=== PATIENT | female | born 1975 | race Caucasian/White ===

== ENCOUNTER 2019-12-07 21:54 | Emergency (ER) | payer OTHER, SELFPAY ==
[~2019-12-07] VITALS: Ht 157.5 cm; Wt 72.6 kg
--- NOTE | 2019-12-07 22:06 | NUR ---
PT TAKEN TO OF TENT
[2019-12-07 22:17] VITALS: BP 135/56
--- NOTE | 2019-12-07 22:19 | NUR ---
SEE TRIAGE NOTE.
[2019-12-07] MEDS: ACETAMIN/CODEINE 120/12MG-5ML 5 ML UDC PO ONE (22:41)
[2019-12-07] MEDS: KETOROLAC 30 MG/ML VIAL IM ONE (22:42)
--- NOTE | 2019-12-07 23:19 | NUR ---
Patient discharged with v/s stable. Written and verbal after care instructions given and explained. Patient alert, oriented and verbalized understanding of instructions. Ambulatory with steady gait. All questions addressed prior to discharge. ID band removed. Patient advised to follow up with PMD. Rx of Z=PACK, NAPROSYN AND CUAISTUSSIN given. Patient educated on indication of medication including possible reaction and side effects. Opportunity to ask questions provided and answered.
[2019-12-07 23:22] VITALS: BP 123/62
--- NOTE | 2019-12-08 15:11 | NUR ---
Prescription called to [facility] pharmacy in [place]-- 500mg PO q6H for pain/fever.
== END 2019-12-07 23:19 | disposition home or self-care (01) ==
LOC: MED 21:54
DX: J20.9 Acute bronchitis, unspecified (principal); Z20.828 Contact with and (suspected) exposure to other viral communicable diseases
CPT/HCPCS: 71045; 96372; 99283; J1885

== ENCOUNTER 2021-10-14 21:36 | Emergency (ER) | payer OTHER ==
[~2021-10-14] VITALS: Ht 157.5 cm; Wt 80.7 kg
[2021-10-14 22:05] VITALS: BP 150/90
--- NOTE | 2021-10-14 22:08 | NUR ---
TO LOBBY A/W BED AMBULATORY
[2021-10-14] MEDS ORDERED: ONDANSETRON 4 MG ODT PO ONE (23:05)
--- NOTE | 2021-10-14 23:20 | NUR ---
PT AMBULATED TO BED #11
[2021-10-14 23:22] LABS: BASOPHILS # (AUTO) 0.1 K/uL (0.00-0.22); EOSINOPHILS % (AUTO) 0.3 % (0.0-4.0); HEMATOCRIT 37.6 % (36-48); HEMOGLOBIN 12.8 g/dL (12.0-16.0); LYMPHOCYTES # (AUTO) 2.1 K/uL (2.5-16.5); LYMPHOCYTES % (AUTO) 29.1 % (20.5-51.1); MEAN CORPUSCULAR HEMOGLOBIN 31 pg (27-31); MEAN CORPUSCULAR HGB CONC 34 g/dL (33-37); MEAN CORPUSCULAR VOLUME 91.8 fL (80-94); MONOCYTES # (AUTO) 0.6 K/uL (0.8-1.0); MONOCYTES % (AUTO) 8.6 % (1.7-9.3); NEUTROPHILS # (AUTO) 4.3 K/uL (1.8-7.7); PLATELET COUNT (AUTO) 234 K/uL (140-450); RED CELL DISTRIBUTION WIDTH 14.9 % (11.6-13.7); WHITE BLOOD COUNT (AUTO) 7.1 K/uL (4.8-10.8)
[2021-10-14 23:44] LABS: ALBUMIN 3.9 g/dL (3.4-5.0); ANION GAP 15.5 (8-16); CREATININE 0.5 mg/dL (0.6-1.3); POTASSIUM 3.5 mmol/L (3.5-5.1); TOTAL BILIRUBIN 1.1 mg/dL (0.0-1.0)
--- NOTE | 2021-10-14 23:50 | NUR ---
46 YO F BIB SELF WITH C/C OF N/V X 2 DAYS. PT REPORTS 9/10 LOWER ABD/PELVIC PAIN THAT RADS FROM FRONT TO BACK. DENEIS URINARY CHANGES. DENIES BLOOD IN EMESIS. DENIES DIARRHEA. PT REPORTS LEFT NECK PAIN THAT WHEN PRESSED IN CERTAIN PLACES PAIN RAD TO HEAD AND REPORTS BLURRED VISION. DENIES HX, RX AND ALLERGIES
[2021-10-15] MEDS ORDERED: diazePAM 5 MG TAB PO ONE
[2021-10-15] MEDS ORDERED: KETOROLAC 30 MG/ML VIAL IM ONE
--- NOTE | 2021-10-15 00:09 | NUR ---
RAD AT BEDSIDE.
--- NOTE | 2021-10-15 01:43 | NUR ---
pt is awake and alert, states her abd is still hurting. ermd made aware.
[2021-10-15] MEDS ORDERED: HYDROcodone/APAP 5/325 MG 1 TAB TAB PO ONE (01:45)
[2021-10-15 01:46] LABS: APPEARANCE,URINE CLEAR (CLEAR); BILIRUBIN,URINE 2+ (NEGATIVE); BLOOD, URINE NEGATIVE (NEGATIVE); COLOR,URINE DARK YELLOW (YELLOW); LEUKOCYTE ESTERASE ,URINE NEGATIVE (NEGATIVE); NITRITE, URINE NEGATIVE (NEGATIVE); UGLUCOSE NEGATIVE (NEGATIVE)
[2021-10-15 01:59] LABS: RBC,URINE 0-5 /HPF (0-5); WBC,URINE 0-5 /HPF (0-5)
[2021-10-15 02:00] LABS: TRICHOMONAS,URINE Few /HPF (None Seen)
[2021-10-15] MEDS ORDERED: BEN10 PO (02:46)
[2021-10-15] MEDS ORDERED: NAPR-54 PO (02:46)
[2021-10-15] MEDS ORDERED: METR-435 PO (02:46)
[2021-10-15 03:00] VITALS: BP 134/72
--- NOTE | 2021-10-15 03:00 | NUR ---
Patient discharged with v/s stable. Written and verbal after care instructions given and explained. Patient alert, oriented and verbalized understanding of instructions. Ambulatory with steady gait. All questions addressed prior to discharge. ID band removed. Patient advised to follow up with PMD. Rx of bentyl and metronidazole given. Patient educated on indication of medication including possible reaction and side effects. Opportunity to ask questions provided and answered.
== END 2021-10-15 03:00 | disposition home or self-care (01) ==
LOC: MED 21:36
DX: A59.01 Trichomonal vulvovaginitis (principal); M54.2 Cervicalgia; J45.909 Unspecified asthma, uncomplicated; Z98.890 Other specified postprocedural states; Z79.899 Other long term (current) drug therapy; Z79.1 Long term (current) use of non-steroidal anti-inflammatories (NSAID); Z79.2 Long term (current) use of antibiotics
CPT/HCPCS: 36415; 71045; 80053; 81001; 81025; 83690; 85025; 93005; 96372; 99285; J1885; Q0092; Q0162

== ENCOUNTER 2022-06-30 19:03 | Observation (INO) | payer OTHER ==
[~2022-06-30] VITALS: Ht 157.5 cm; Wt 71.7 kg
[~2022-06-30 19:03] MED LIST: BEN10 PO; METR-435 PO; NAPR-54 PO
[2022-06-30 19:06] VITALS: BP 142/91
--- NOTE | 2022-06-30 19:13 | NUR ---
47/f walked in c/o headache, abd pain, nausea, vomiting, sore throat and sob. denies chest pain at this time. aao4, ambulatory, vitals stable. on room air. Hx-HTN, asthma, gerd
[2022-06-30] MEDS ORDERED: NACL 0.9% 1,000 ML IV ONE ×2 (19:25→22:35)
[2022-06-30] MEDS ORDERED: diphenhydrAMINE 50 MG/ML VIAL IVP ONE (19:25)
[2022-06-30] MEDS ORDERED: METOCLOPRAMIDE 10 MG/2 ML INJ VIAL IVP ONE (19:25)
[2022-06-30 19:57] LABS: BASOPHILS # (AUTO) 0.1 K/uL (0.00-0.22); BASOPHILS % (AUTO) 1.1 % (0.0-2.0); EOSINOPHILS % (AUTO) 0.2 % (0.0-4.0); HEMATOCRIT 38.1 % (36-48); HEMOGLOBIN 13.1 g/dL (12.0-16.0); LYMPHOCYTES # (AUTO) 1.7 K/uL (2.5-16.5); LYMPHOCYTES % (AUTO) 27.5 % (20.5-51.1); MEAN CORPUSCULAR HEMOGLOBIN 35 pg (27-31); MEAN CORPUSCULAR HGB CONC 34 g/dL (33-37); MEAN CORPUSCULAR VOLUME 101.3 fL (80-94); MONOCYTES # (AUTO) 0.5 K/uL (0.8-1.0); MONOCYTES % (AUTO) 7.7 % (1.7-9.3); NEUTROPHILS # (AUTO) 3.9 K/uL (1.8-7.7); NEUTROPHILS % (AUTO) 63.5 % (42.2-75.2); PLATELET COUNT (AUTO) 197 K/uL (140-450); RED BLOOD CELL COUNT(AUTO) 3.76 MIL/uL (4.20-5.40); RED CELL DISTRIBUTION WIDTH 16.3 % (11.6-13.7); WHITE BLOOD COUNT (AUTO) 6.1 K/uL (4.8-10.8)
[2022-06-30 20:29] LABS: ALBUMIN 4.1 g/dL (3.4-5.0); ANION GAP 17.3 (8-16); ASPARTATE AMINOTRANSFERASE 187 U/L (15-37); CARBON DIOXIDE 26.1 mmol/L (21-32); CHLORIDE 98 mmol/L (98-107); CREATININE 0.7 mg/dL (0.6-1.3); GFR ARICAN-AMERICAN 115 mL/min (>90); GLUCOSE 93 mg/dL (74-106); LIPASE 327 U/L (73-393); POTASSIUM 3.4 mmol/L (3.5-5.1); SODIUM SERUM 138 mmol/L (136-145); TOTAL BILIRUBIN 1.4 mg/dL (0.0-1.0); UREA NITROGEN, BLOOD 9 mg/dL (7-18)
--- NOTE | 2022-06-30 20:30 | NUR ---
pt is having nausea and vomitting.
[2022-06-30 20:44] LABS: APPEARANCE,URINE CLEAR (CLEAR); BILIRUBIN,URINE 3+ (NEGATIVE); BLOOD, URINE NEGATIVE (NEGATIVE); COLOR,URINE YELLOW (YELLOW); LEUKOCYTE ESTERASE ,URINE NEGATIVE (NEGATIVE); NITRITE, URINE POSITIVE (NEGATIVE); PH,URINE 5.5 (5.0-9.0); UGLUCOSE TRACE (NEGATIVE)
[2022-07-01] MEDS ORDERED: POTASSIUM CHLORIDE 10 MEQ TABER PO PRN (01:00)
[2022-07-01] MEDS ORDERED: ACETAMINOPHEN 325 MG TAB PO PRN (01:00)
[2022-07-01] MEDS ORDERED: HYDROcodone/APAP 5/325 MG 1 TAB TAB PO PRN (01:00)
[2022-07-01] MEDS ORDERED: ONDANSETRON 4 MG/2 ML VIAL IVP PRN (01:00)
--- NOTE | 2022-07-01 01:00 | NUR ---
pt is complaning about the headache. I let KAYLEE reilly knows.
[2022-07-01] MEDS ORDERED: GABA100C PO (02:19)
[2022-07-01] MEDS ORDERED: NYST100022 PO (02:19)
[2022-07-01] MEDS ORDERED: BISO5TAB30 PO (02:19)
[2022-07-01] MEDS: NACL 0.9% 1,000 ML IV SCH ×2 (02:28→13:00)
--- NOTE | 2022-07-01 06:43 | NUR ---
pt is resting on the bed. bed lowered and side rail up.
[2022-07-01] MEDS ORDERED: BUDESONIDE 0.5 MG/2 ML NEBU INH SCH (07:30)
--- NOTE | 2022-07-01 07:42 | NUR ---
PT CALM AND RESTING AT THIS TIME.
--- NOTE | 2022-07-01 07:50 | NUR ---
Patient will be admitted to care of DR COLLAZO. Admited to MS. Will go to room 119B. Belongings list completed. Report to JUMA BLANTON.
--- NOTE | 2022-07-01 08:10 | NUR ---
Admitted from , with chief complaint of , 47 y/o ,Female, Appropriate, oriented to call light, bed, phone,television, bathroom, smoking policy, visiting hours, procedures, ID bracelet on. Belongings list checked. PATIENT A/OX4 , VSS , MED SURGE PATIENT , AMBULATORY X2 , CONTINENT X2 , ON IV FLUID 80CC/H SKIN INTACT , SAFETY PROACTION ON PLACE , SIDE RAILS UP X3 , BED IN LOWER POSITION , CALL LIGHT WITHIN REACH WITH IV RIGHT AC AND LEFT HAND INTACT , STILL UNDER OBSERVE
[2022-07-01] MEDS ORDERED: DOCUSATE SODIUM 100 MG GELCAP PO SCH (09:00)
[2022-07-01] MEDS ORDERED: PANT40EC PO (10:30)
[2022-07-01] MEDS ORDERED: ONDA-188 SL (10:30)
[2022-07-01 10:46] VITALS: BP 137/88
[2022-07-01 12:12] VITALS: BP 124/72
--- NOTE | 2022-07-01 13:16 | NUR ---
NURSES NOTE PATIENT A/OX4 , VSS , ON IV FLUID 80CC/H , NO NAUSEA OR VOMITING NO COMPLAIN AT THIS TIME , STILL UNDER OBSERVE .
--- NOTE | 2022-07-01 14:54 | NUR ---
PATIENT HAS BEEN SCREENED AND CATEGORIZED HIGH NUTRITION RISK. PATIENT WILL BE SEEN WITHIN 1-2 DAYS OF ADMISSION. GO [address]
--- NOTE | 2022-07-01 15:57 | NUR ---
NURSES NOTE PATIENT A/OX4 , VSS , MED SURGE PATIENT , AMBULATORY , CONTINENTSX2 , SKIN INTACT ON ROOM AIR , ON CARDIAC DIET , STILL HAS NAUSEA , ON IV FLUID N/S 0.9% 85CC/H STILL UNDER OBSERVE .
[2022-07-01 16:57] VITALS: BP 124/80
--- NOTE | 2022-07-01 18:40 | NUR ---
NURSES NOTE PATIENT A/OX4 , VSS , NO COMPLAIN AT THIS TIME , NO NAUSEA , PATIENT HAS DISCHARGE ORDER TO GO HOME PATIENT AGREE TO BE DISCHARGE , IV AND ARM BAND REMOVED , SHE WILL PICKED UP BY HER . ASSISTED TO MAIN LOBBY BY WILL CHAIR , MEDICATIN RECONCILED , DISCHARGE PACKET EX[NICKY FOR PATIENT PATIENT VERBALIZED UNDERSTANDING OF GIVEN , ALL DOCUMENT SING AND PLACE ON CHART .
--- NOTE | 2022-07-05 12:12 | NUR ---
ALBER LYNCH CALLED DR ALVAREZ OFFICE LOCATED AT [address] [phone]. SPOKE WITH PARKER WHO GAVE ME A TELEPHONE APPOINTMENT FOR 07/19/2022 AT 1345. CALLED PT TO INFORM HIM BUT HE DIDN'T ANSWER DO LEFT HIM A [phone]
== END 2022-07-01 19:08 | disposition home or self-care (01) ==
LOC: MED 19:03 → MMU 07-01 01:01 → MTU 07-01 06:35
PROVIDERS: ADMIT Student in an Organized Health Care Education/Training Program; ATTEND Student in an Organized Health Care Education/Training Program
DX: K21.9 Gastro-esophageal reflux disease without esophagitis (principal); Z20.822 Contact with and (suspected) exposure to COVID-19; E86.0 Dehydration; R11.2 Nausea with vomiting, unspecified; I10 Essential (primary) hypertension; E86.1 Hypovolemia; J45.909 Unspecified asthma, uncomplicated; Z79.899 Other long term (current) drug therapy
CPT/HCPCS: 36415; 71045; 80053; 81003; 83690; 84484; 85025; 87081; 96361; 96372; 96374; 96375; 99285; G0378; J1200; J1644; J2405; J2765; Q0092

== ENCOUNTER 2022-08-04 11:24 | Day surgery (SDC) | payer OTHER ==
[~2022-08-04] VITALS: Ht 157.5 cm; Wt 68.0 kg
[~2022-08-04 11:24] MED LIST changes: +BISO5TAB30 PO; +GABA100C PO; +NYST100022 PO; +ONDA-188 SL; +PANT40EC PO
[2022-08-04] MEDS ORDERED: fentaNYL citrate 0.05 MG/ML VIAL ONE (12:30)
[2022-08-04] MEDS ORDERED: MIDAZOLAM 2 MG/2 ML VIAL ONE ×2 (12:30)
[2022-08-04] MEDS ORDERED: LIDOCAINE 2% 100 MG/5 ML UJET TP ONE (12:31)
[2022-08-04] MEDS ORDERED: fentaNYL citrate 0.05 MG/ML VIAL IVP ONE (12:55)
== END 2022-08-04 13:50 | disposition home or self-care (01) ==
LOC: MDS 11:24 → MMU 11:24 → MDS 13:50
PROVIDERS: ATTEND Internal Medicine Gastroenterology
DX: K59.00 Constipation, unspecified (principal); K57.30 Diverticulosis of large intestine without perforation or abscess without bleeding; I10 Essential (primary) hypertension; J45.909 Unspecified asthma, uncomplicated; Z79.899 Other long term (current) drug therapy; Z20.822 Contact with and (suspected) exposure to COVID-19
CPT/HCPCS: 45378; 87426; J2250; J3010

== ENCOUNTER 2023-01-12 16:42 | Emergency (ER) | payer OTHER ==
[~2023-01-12] VITALS: Ht 157.5 cm; Wt 66.2 kg
[2023-01-12 16:58] VITALS: BP 111/74; PULSE 111; RESP 18; TEMP 98.7; O2SAT 97
[2023-01-12] MEDS ORDERED: NACL 0.9% 1,000 ML IV SCH (17:15)
[2023-01-12] MEDS ORDERED: ONDANSETRON 4 MG/2 ML VIAL IVP ONE (17:35)
[2023-01-12] MEDS ORDERED: KETOROLAC 30 MG/ML VIAL IVP ONE (17:35)
[2023-01-12 17:46] LABS: BASOPHILS # (AUTO) 0.1 K/uL (0.00-0.22); BASOPHILS % (AUTO) 1.2 % (0.0-2.0); EOSINOPHILS % (AUTO) 0.4 % (0.0-4.0); HEMATOCRIT 34.5 % (36-48); HEMOGLOBIN 11.8 g/dL (12.0-16.0); LYMPHOCYTES % (AUTO) 25.3 % (20.5-51.1); MEAN CORPUSCULAR HEMOGLOBIN 34 pg (27-31); MEAN CORPUSCULAR HGB CONC 34 g/dL (33-37); MEAN CORPUSCULAR VOLUME 98.4 fL (80-94); MONOCYTES # (AUTO) 0.4 K/uL (0.8-1.0); MONOCYTES % (AUTO) 10.4 % (1.7-9.3); NEUTROPHILS # (AUTO) 2.6 K/uL (1.8-7.7); NEUTROPHILS % (AUTO) 62.7 % (42.2-75.2); PLATELET COUNT (AUTO) 214 K/uL (140-450); RED BLOOD CELL COUNT(AUTO) 3.51 MIL/uL (4.20-5.40); RED CELL DISTRIBUTION WIDTH 20.9 % (11.6-13.7); WHITE BLOOD COUNT (AUTO) 4.1 K/uL (4.8-10.8)
[2023-01-12 17:57] LABS: APPEARANCE,URINE SL CLOUDY (CLEAR); BILIRUBIN,URINE 2+ (NEGATIVE); BLOOD, URINE NEGATIVE (NEGATIVE); COLOR,URINE ORANGE (YELLOW); LEUKOCYTE ESTERASE ,URINE TRACE (NEGATIVE); NITRITE, URINE POSITIVE (NEGATIVE); PROTEIN,URINE 1+ (NEGATIVE); UGLUCOSE NEGATIVE (NEGATIVE)
[2023-01-12 18:03] LABS: ALBUMIN 3.6 g/dL (3.4-5.0); ANION GAP 15.4 (8-16); CALCIUM 9.2 mg/dL (8.5-10.1); CARBON DIOXIDE 29.5 mmol/L (21-32); CREATININE 0.7 mg/dL (0.6-1.3); TOTAL BILIRUBIN 1.7 mg/dL (0.0-1.0); TOTAL PROTEIN, SERUM 7.5 g/dL (6.4-8.2)
[2023-01-12 18:06] LABS: INR 1.06 (0.8-1.2); PARTIAL THROMBOPLASTIN TIME 21.6 secs (22-35.6); POTASSIUM 2.9 mmol/L (3.5-5.1); PROTHROMBIN TIME 11.1 secs (10.8-13.4)
[2023-01-12] MEDS ORDERED: POTASSIUM CHLORIDE 10 MEQ TABER PO ONE ×2 (18:10→21:04)
[2023-01-12 18:17] LABS: BACTERIA,URINE 3+ /HPF (None Seen); ICTOTEST NEGATIVE (NEGATIVE); RBC,URINE 0-5 /HPF (0-5); WBC,URINE 0-5 /HPF (0-5)
[2023-01-12 18:18] LABS: MUCUS,URINE 1+ /LPF (None Seen); SQUAMOUS EPITHELIAL CELL,UR 20-50 /LPF (0-3 (FEW)); TRICHOMONAS,URINE None Seen /HPF (None Seen); YEAST,URINE None Seen /HPF (None Seen)
[2023-01-12] MEDS ORDERED: cefTRIAXone 1,000 MG VIAL ONE (19:44)
[2023-01-12] MEDS ORDERED: MORPHINE SULFATE 4 MG/ML SYR IVP ONE (19:45)
[2023-01-12] MEDS ORDERED: METOCLOPRAMIDE 10 MG/2 ML INJ VIAL IVP ONE (19:45)
[2023-01-12] MEDS ORDERED: AMOX1TAB8 PO (21:18)
[2023-01-12] MEDS ORDERED: POTA10TA70 PO (21:18)
[2023-01-12 21:45] VITALS: BP 115/74; PULSE 89; RESP 18; O2SAT 94
== END 2023-01-12 21:45 | disposition home or self-care (01) ==
LOC: MED 16:42
DX: N39.0 Urinary tract infection, site not specified (principal); E87.6 Hypokalemia; R11.2 Nausea with vomiting, unspecified; M54.50 Low back pain, unspecified; J45.909 Unspecified asthma, uncomplicated; I10 Essential (primary) hypertension; F17.210 Nicotine dependence, cigarettes, uncomplicated; Z79.899 Other long term (current) drug therapy
CPT/HCPCS: 36415; 76830; 80053; 81001; 81025; 85025; 85610; 85730; 87086; 96361; 96365; 96366; 96375; 99285; J0696; J1885; J2270; J2405; J2765; J7030; Q0092

== ENCOUNTER 2024-02-13 09:26 | Inpatient (IN) | payer OTHER ==
[~2024-02-13] VITALS: Ht 157.5 cm; Wt 59.9 kg
[~2024-02-13 09:26] MED LIST changes: +AMOX1TAB8 PO; +NAPR-337 PO; -NAPR-54 PO; +POTA10TA70 PO
[2024-02-13 13:42] VITALS: PULSE 64; RESP 18; O2SAT 98
[2024-02-13 13:53] VITALS: BP 127/70; PULSE 64; RESP 16; TEMP 96.8
[2024-02-13 15:17] VITALS: PULSE 64; RESP 16; O2SAT 98
[2024-02-13 16:00] VITALS: BP 101/60; PULSE 66; RESP 18; TEMP 97.2
[2024-02-13 20:00] VITALS: BP 136/72; PULSE 80; RESP 18; TEMP 97.6; O2SAT 97
[2024-02-13 22:40] LABS: HEMATOCRIT 33.8 % (36-48); HEMOGLOBIN 11.5 g/dL (12.0-16.0)
[2024-02-14] VITALS: BP 132/66; PULSE 72; RESP 18; TEMP 97.2; O2SAT 96
[2024-02-14 04:00] VITALS: BP 130/66; PULSE 76; RESP 18; TEMP 98; O2SAT 98
[2024-02-14 08:00] VITALS: BP 100/55; PULSE 60; RESP 18; TEMP 98; O2SAT 97
[2024-02-14 13:35] VITALS: BP_SYST 110; BP_SYST 117; BP_DIAS 62; BP_DIAS 74; PULSE 60; PULSE 79; RESP 18; TEMP 96.8; TEMP 98
[2024-02-14 13:45] VITALS: BP 117/74; PULSE 79; RESP 18; TEMP 96.8; O2SAT 100
== END 2024-02-14 14:50 | disposition home or self-care (01) | DRG 663 ==
LOC: MMU 09:26 → MTU 13:30
PROVIDERS: ADMIT Obstetrics & Gynecology; ATTEND Obstetrics & Gynecology
PROC: 30233N1 Transfusion of Nonautologous Red Blood Cells into Peripheral Vein, Percutaneous Approach (ICD-10-PCS; principal; 2024-02-13)
DX: D50.0 Iron deficiency anemia secondary to blood loss (chronic) (principal); D25.9 Leiomyoma of uterus, unspecified; N93.9 Abnormal uterine and vaginal bleeding, unspecified; Z79.899 Other long term (current) drug therapy
CPT/HCPCS: 36415; 85018; 86886; 86900; 86901; 86920; P9016

== ENCOUNTER 2024-02-26 08:57 | Inpatient (IN) | payer OTHER ==
[~2024-02-26] VITALS: Ht 157.5 cm; Wt 59.9 kg
[2024-02-26] MEDS ORDERED: SEVOFLURANE 250 ML BTL INH ONE (11:30)
[2024-02-26] MEDS: fentaNYL citrate 0.05 MG/ML VIAL ONE ×2 (11:37→12:04)
[2024-02-26] MEDS: MIDAZOLAM 2 MG/2 ML VIAL ONE (11:37)
[2024-02-26] MEDS: PROPOFOL 200 MG/20 ML VIAL IV ONE (11:37)
[2024-02-26] MEDS: ROCURONIUM 50 MG/5 ML VIAL IV ONE (11:38)
[2024-02-26] MEDS ORDERED: oxyCODONE/APAP 5/325 MG 1 TAB TAB PO PRN ×2 (11:40)
[2024-02-26] MEDS ORDERED: TEMAZEPAM 15 MG CAP PO PRN (11:40)
[2024-02-26] MEDS ORDERED: KETOROLAC 30 MG/ML VIAL IVP PRN (11:40)
[2024-02-26] MEDS ORDERED: IBUPROFEN 800 MG TAB PO PRN (11:40)
[2024-02-26] MEDS: ONDANSETRON 4 MG/2 ML VIAL ONE ×2 (11:51)
[2024-02-26] MEDS: DEXAMETHASONE 4 MG/ML VIAL ONE ×2 (11:51)
[2024-02-26] MEDS: BUPIVACAINE-MPF 0.25% 30 ML VIAL INJ ONE (12:25)
[2024-02-26] MEDS: NEOSTIGMINE 1:1000 10 MG/10 ML VIAL ONE ×2 (12:31→12:32)
[2024-02-26] MEDS: GLYCOPYRROLATE 0.2 MG/ML VIAL ONE ×3 (12:31)
[2024-02-26] MEDS: KETOROLAC 30 MG/ML VIAL ONE (12:34)
[2024-02-26] MEDS: LACTATED RINGERS 1,000 ML IV SCH (12:50)
[2024-02-26] MEDS ORDERED: diphenhydrAMINE 50 MG/ML VIAL IVP PRN (12:50)
[2024-02-26] MEDS ORDERED: ONDANSETRON 4 MG/2 ML VIAL IVP PRN (12:50)
[2024-02-26] MEDS: HYDROmorphone 1 MG/ML AMP IVP PRN (13:00)
[2024-02-26 15:00] VITALS: PULSE 72; O2SAT 99
[2024-02-26 15:06] VITALS: BP 108/60; PULSE 72; RESP 18; TEMP 97.1; O2SAT 99
[2024-02-26] MEDS: HYDROmorphone PFS 2 MG/ML SYR IVP PRN (16:05)
[2024-02-26] MEDS: ONDANSETRON 4 MG/2 ML VIAL IVP PRN (16:09)
[2024-02-26] MEDS ORDERED: AMLO10TA89 PO (16:58)
[2024-02-26] MEDS ORDERED: METO25TE2 PO (16:58)
[2024-02-26 20:00] VITALS: BP 110/76; PULSE 72; PULSE 75; RESP 18; TEMP 98; O2SAT 96
[2024-02-26] MEDS: DOCUSATE SOD/SENNA 50/8.6 MG 1 TAB PO SCH (20:31)
[2024-02-26] MEDS: NICOTINE TRANSD SYS 21 MG/24 HR PATCH TD SCH (20:32)
[2024-02-27] VITALS: BP 124/68; PULSE 68; RESP 18; TEMP 97.6; O2SAT 97
[2024-02-27 04:00] VITALS: BP 113/56; PULSE 66; RESP 18; TEMP 97.6; O2SAT 96
[2024-02-27 08:00] VITALS: BP 118/69; PULSE 94; PULSE 99; RESP 18; TEMP 97.2; O2SAT 99
[2024-02-27] MEDS: MEDS-TO-BEDS MC SCH (08:50)
[2024-02-27] MEDS: NICOTINE TRANSD SYS 21 MG/24 HR PATCH TD SCH (08:51)
[2024-02-27 16:00] VITALS: BP 114/71; PULSE 91; RESP 18; TEMP 98.1; O2SAT 99
[2024-02-27 20:00] VITALS: BP 118/74; PULSE 100; PULSE 94; RESP 18; RESP 19; TEMP 97.3; O2SAT 98; O2SAT 99
[2024-02-28 04:00] VITALS: BP 112/65; PULSE 101; RESP 20; TEMP 97; O2SAT 100
[2024-02-28] MEDS: SIMETHICONE 80 MG TAB.CHEW PO PRN (06:36)
[2024-02-28 08:00] VITALS: BP 113/76; PULSE 101; PULSE 70; RESP 18; TEMP 97.4; O2SAT 98; O2SAT 99
== END 2024-02-28 11:25 | disposition home or self-care (01) | DRG 519 ==
LOC: MDS 08:57 → MMU 08:57 → UNDOADMIN 08:57 → MMU 08:57 → EDSTATUS 11:30 → MTU 13:40 → MDS 13:42 → MTU 02-27 13:30
PROVIDERS: ADMIT Obstetrics & Gynecology; ATTEND Obstetrics & Gynecology
PROC: 0UT90ZL Resection of Uterus, Supracervical, Open Approach (ICD-10-PCS; principal; 2024-02-26 11:30)
DX: D25.9 Leiomyoma of uterus, unspecified (principal); N92.0 Excessive and frequent menstruation with regular cycle
CPT/HCPCS: 36415; 84703; 86886; 86900; 86901; J0690; J1100; J1171; J1885; J2250; J2405; J2704; J2710; J3010; J3490; J7060